=== PATIENT | female | born 1955 | race African-American/Black ===

== ENCOUNTER 2017-12-22 13:32 | Emergency (ER) | payer SELFPAY ==
[~2017-12-22] VITALS: Ht 165.1 cm; Wt 68.0 kg
[2017-12-22] MEDS ORDERED: IBUPROFEN 400MG TABLET PO ONE (14:30)
[2017-12-22 14:44] VITALS: BP 128/79
== END 2017-12-22 15:05 | disposition home or self-care (01) ==
LOC: ER 14:42
DX: S09.8XXA Other specified injuries of head, initial encounter (principal); S40.022A Contusion of left upper arm, initial encounter; Z98.890 Other specified postprocedural states; Z93.0 Tracheostomy status; W01.0XXA Fall on same level from slipping, tripping and stumbling without subsequent striking against object, initial encounter; Y93.89 Activity, other specified; Y92.89 Other specified places as the place of occurrence of the external cause; Y99.8 Other external cause status
CPT/HCPCS: 70450; 73060; 99284